=== PATIENT | male | born 1955 | race Two or more races ===

== ENCOUNTER 2019-01-06 12:03 | Outpatient (CLI) | payer OTHER | END 2019-01-06 15:29 | disposition home or self-care (01) | LOC: SONOGRAMA 12:03 | DX: N18.3 Chronic kidney disease, stage 3 (moderate) (principal) ==

== ENCOUNTER 2019-03-30 00:39 | Emergency (ER) | payer OTHER ==
[~2019-03-30] VITALS: Ht 175.3 cm; Wt 77.1 kg
== END 2019-03-30 04:02 | disposition home or self-care (01) ==
LOC: ER 00:39
DX: R55 Syncope and collapse (principal)

== ENCOUNTER 2019-07-07 09:30 | Outpatient (CLI) | payer OTHER | END 2019-07-07 15:00 | disposition home or self-care (01) | LOC: LAB 09:30 | DX: N20.0 Calculus of kidney (principal) ==

== ENCOUNTER 2019-07-18 09:41 | Outpatient (CLI) | payer OTHER | END 2019-07-18 10:05 | disposition home or self-care (01) | LOC: MRI 09:41 | DX: C64.1 Malignant neoplasm of right kidney, except renal pelvis (principal) | CPT/HCPCS: 72196; 74181 ==

== ENCOUNTER 2019-07-21 09:47 | Outpatient (CLI) | payer OTHER | END 2019-07-21 16:32 | disposition home or self-care (01) | LOC: NUCLEAR 09:47 | DX: C64.2 Malignant neoplasm of left kidney, except renal pelvis (principal) | CPT/HCPCS: 78708; J1940; A9539 ==

== ENCOUNTER 2019-10-28 14:56 | Outpatient (CLI) | payer OTHER | END 2019-10-28 15:06 | disposition home or self-care (01) | LOC: RAD 14:56 | PROVIDERS: ATTEND Urology | DX: C61 Malignant neoplasm of prostate (principal) ==

== ENCOUNTER 2019-11-04 08:16 | Outpatient (CLI) | payer OTHER | END 2019-11-04 08:18 | disposition home or self-care (01) | LOC: NUCLEAR 08:16 | PROVIDERS: ATTEND Urology | DX: I20.8 Other forms of angina pectoris (principal); C64.1 Malignant neoplasm of right kidney, except renal pelvis | CPT/HCPCS: 78452; 93017; A9500 ==

== ENCOUNTER → 2020-02-08 | Outpatient (CLI) | payer OTHER | END | disposition home or self-care (01) | LOC: MRI 07:15 | PROVIDERS: ATTEND Urology | DX: C64.2 Malignant neoplasm of left kidney, except renal pelvis (principal) | CPT/HCPCS: 72197; 74183 ==

== ENCOUNTER 2020-07-30 14:11 | Outpatient (CLI) | payer OTHER | END 2020-07-30 14:37 | disposition home or self-care (01) | LOC: SONOGRAMA 14:11 | PROVIDERS: ATTEND Urology | DX: C64.1 Malignant neoplasm of right kidney, except renal pelvis (principal) ==

== ENCOUNTER → 2020-08-20 16:57 | Outpatient (CLI) | payer OTHER | END | disposition home or self-care (01) | LOC: PPH VACUNA 16:57 | PROVIDERS: ATTEND Emergency Medicine Pediatric Emergency Medicine | DX: Z23 Encounter for immunization (principal) ==

== ENCOUNTER 2020-12-14 08:10 | Outpatient (CLI) | payer OTHER | END 2020-12-14 08:44 | disposition home or self-care (01) | LOC: MRI 08:10 | PROVIDERS: ATTEND Urology | DX: C64.1 Malignant neoplasm of right kidney, except renal pelvis (principal); C64.2 Malignant neoplasm of left kidney, except renal pelvis | CPT/HCPCS: 72197; 74183 ==

== ENCOUNTER 2021-03-08 10:45 | Outpatient (CLI) | payer OTHER | END 2021-03-08 11:00 | disposition home or self-care (01) | LOC: PPH VACUNA 10:45 | PROVIDERS: ATTEND Emergency Medicine Pediatric Emergency Medicine | DX: Z23 Encounter for immunization (principal) ==

== ENCOUNTER 2021-06-08 11:28 | Outpatient (CLI) | payer OTHER | END 2021-06-08 11:42 | disposition home or self-care (01) | LOC: RAD 11:28 | PROVIDERS: ATTEND Internal Medicine | DX: M25.552 Pain in left hip (principal); Z87.891 Personal history of nicotine dependence ==

== ENCOUNTER 2021-07-17 08:14 | Outpatient (CLI) | payer OTHER | END 2021-07-17 08:32 | disposition home or self-care (01) | LOC: TOM 08:14 | PROVIDERS: ATTEND Internal Medicine | DX: M25.552 Pain in left hip (principal) ==

== ENCOUNTER 2021-10-30 08:40 | Outpatient (CLI) | payer OTHER | END 2021-10-30 08:50 | disposition home or self-care (01) | LOC: PPH VACUNA 08:40 | PROVIDERS: ATTEND Emergency Medicine Pediatric Emergency Medicine | DX: Z23 Encounter for immunization (principal) ==

== ENCOUNTER 2022-02-18 07:55 | Outpatient (CLI) | payer OTHER | END 2022-02-18 07:57 | disposition home or self-care (01) | LOC: SONOGRAMA 07:55 | PROVIDERS: ATTEND Urology | DX: C64.1 Malignant neoplasm of right kidney, except renal pelvis (principal) ==

== ENCOUNTER 2022-02-18 09:23 | Outpatient (CLI) | payer OTHER | END 2022-02-18 09:33 | disposition home or self-care (01) | LOC: PPH VACUNA 09:23 | PROVIDERS: ATTEND Emergency Medicine Pediatric Emergency Medicine | DX: Z23 Encounter for immunization (principal) ==

== ENCOUNTER 2022-02-21 14:39 | Outpatient (CLI) | payer OTHER | END 2022-02-21 15:00 | disposition home or self-care (01) | LOC: TOM 14:39 | DX: J44.9 Chronic obstructive pulmonary disease, unspecified (principal); G47.33 Obstructive sleep apnea (adult) (pediatric) ==

== ENCOUNTER 2023-03-31 09:37 | Outpatient (CLI) | payer OTHER | END 2023-03-31 09:49 | disposition home or self-care (01) | LOC: SONOGRAMA 09:37 | DX: N28.89 Other specified disorders of kidney and ureter (principal); Z91.013 Allergy to seafood ==

== ENCOUNTER 2023-04-13 12:51 | Outpatient (CLI) | payer OTHER | END 2023-04-13 12:58 | disposition home or self-care (01) | LOC: RAD 12:51 | PROVIDERS: ATTEND Urology | DX: C64.1 Malignant neoplasm of right kidney, except renal pelvis (principal); Z91.013 Allergy to seafood ==

== ENCOUNTER 2023-04-24 10:22 | Outpatient (CLI) | payer OTHER | END 2023-04-24 10:42 | disposition home or self-care (01) | LOC: SONOGRAMA 10:22 | DX: N20.0 Calculus of kidney (principal) ==

== ENCOUNTER 2024-04-25 08:48 | Outpatient (CLI) | payer OTHER | END 2024-04-25 09:00 | disposition home or self-care (01) | LOC: RAD 08:48 | PROVIDERS: ATTEND Urology | DX: C64.1 Malignant neoplasm of right kidney, except renal pelvis (principal) ==